=== PATIENT | male | born 1945 | race Caucasian/White ===

== ENCOUNTER 2017-04-22 05:32 | Inpatient (IN) | payer MEDICARE, BC ==
[~2017-04-22] VITALS: Ht 180.3 cm; Wt 98.3 kg
[~2017-04-22 05:32] MED LIST: ALEN70TA48 PO; ARIP2TAB5 PO; COU5T PO; FENT-93 TD; FURO40TA4 PO; MIRT30TA3 PO; NORCO10T PO; RES15C PO; WEL100T PO; ZOF4T PO; [UNRECOGNIZED DRUG - CODE] TP
[2017-04-22] MEDS ORDERED: normal saline 1000ML IV soln IV ONE (05:45)
[2017-04-22] MEDS ORDERED: piperacillin/tazo 3.375gm/50ml 50 ML IV ONE (05:45)
[2017-04-22] MEDS ORDERED: normal saline 1000ml 1,000 ML IV ONE (06:05)
[2017-04-22] MEDS ORDERED: normal saline 1000ML IV soln IVB ONE (06:05)
[2017-04-22 06:38] LABS: BASOPHILS % (AUTO) 0.1 % (0-1); EOSINOPHILS % (AUTO) 0 % (0-6); LYMPHOCYTES # (AUTO) 0.4 X10'3 (1.1-4.8); LYMPHOCYTES % (AUTO) 1.5 % (21-51); MEAN CORPUSCULAR HGB CONC 34.4 % (33.0-36.5); MEAN CORPUSCULAR VOLUME 90.2 FL (78-98); MEAN PLATELET VOLUME 8.6 FL (7.4-10.4); MONOCYTES # (AUTO) 0.4 X10'3 (0-0.9); MONOCYTES % (AUTO) 1.6 % (2-12); NEUTROPHILS # (AUTO) 23.5 X10'3 (1.8-7.7); NEUTROPHILS % (AUTO) 96.8 % (42-75); PLATELET COUNT 121 X10'3 (140-440); RED BLOOD COUNT 3.54 X10'6 (4.70-6.10); RED CELL DISTRIBUTION WIDTH 14.4 % (11.5-14.5); WHITE BLOOD COUNT 24.3 X10'3 (4.5-11.0)
[2017-04-22 06:50] LABS: INR 1.2 INR; PARTIAL THROMBOPLASTIN TIME 29 SECONDS (22-32); PROTHROMBIN TIME 12.4 SECONDS (9.0-12.0)
[2017-04-22 06:54] LABS: ALANINE AMINOTRANSFERASE 17 U/L (12-78); ALBUMIN 1.9 G/DL (3.4-5.0); ALBUMIN/GLOBULIN RATIO 0.6 (1.1-1.5); ALKALINE PHOSPHATASE 53 IU/L (46-116); ANION GAP 9 (8-16); ASPARTATE AMINO TRANSFERASE 28 U/L (10-37); BILIRUBIN,TOTAL 0.5 MG/DL (0.1-1.0); BLOOD UREA NITROGEN 27 MG/DL (7-18); BUN/CREATININE RATIO 14.3 (5.4-32.0); CHLORIDE 109 MMOL/L (99-107); CREATININE 1.89 MG/DL (0.60-1.10); GLUCOSE 92 MG/DL (70-104); MAGNESIUM 1.5 MG/DL (1.5-2.4); POTASSIUM 3.5 MMOL/L (3.5-5.1); SODIUM 145 MMOL/L (135-145); TOTAL CARBON DIOXIDE 27.1 MMOL/L (24-32); TOTAL PROTEIN 5.3 G/DL (6.4-8.2); eGFR 35 ML/MIN
[2017-04-22] MEDS ORDERED: cefTRIAXone 1g/NS 100ml IVPB 100 ML IV ONE (06:55)
[2017-04-22 07:11] LABS: BANDS% (MANUAL) 21 % (0-10); LYMPHOCYTES % (MANUAL) 2 % (21-51); METAMYLEOCYTES% (MANUAL) 2 % (0-0); MONOCYTES % (MANUAL) 1 % (2-12); NEUTROPHILS % (MANUAL) 74 % (42-75); PLATELET ESTIMATE DECREASED; TOTAL CELLS COUNTED 100
[2017-04-22] MEDS ORDERED: NORepinephrine 1 mg/ml inj IV ONE (10:00)
[2017-04-22] MEDS ORDERED: NORepinephrine 8mg/ 250ml NS 250 ML IV ONE (11:20)
[2017-04-22] MEDS ORDERED: bisacodyl 10mg suppository rectal RC PRN (14:05)
[2017-04-22] MEDS ORDERED: magnesium hydroxide 30ml (MOM) UD suspension PO PRN (14:05)
[2017-04-22] MEDS ORDERED: magnesium 4gm in 100ml NS 100 ML IV PRN (14:05)
[2017-04-22] MEDS ORDERED: magnesium 2GM in 50ml NS 50 ML IV PRN (14:05)
[2017-04-22] MEDS ORDERED: acetaminophen 325mg tablet PO PRN (14:05)
[2017-04-22] MEDS ORDERED: sodium phosphate inj. 30 MMOL in dextrose 5%-water 250 ML IV PRN (14:05)
[2017-04-22] MEDS ORDERED: magnesium Cl slow-release 64mg tablet PO PRN (14:05)
[2017-04-22 14:10] LABS: CLARITY,URINE CLOUDY (Clear); COLOR,URINE YELLOW (Yellow); GLUCOSE, URINE NEGATIVE (Neg); KETONES,URINE NEGATIVE (Neg); LEUKOCYTE ESTERASE ,URINE LARGE (Neg); NITRITES, URINE NEGATIVE (Neg); OCCULT BLOOD,URINE LARGE (Neg); PROTEIN,URINE 30 mg/dl (Neg); UA COLLECTION TYPE FOLEY CATH; UROBILINOGEN,URINE 0.2 E.U/dL (0.2-1.0)
[2017-04-22 14:32] LABS: WBC,URINE TNTC /HPF (0-4)
[2017-04-22 14:33] LABS: SQUAMOUS EPITHELIAL CELL,UR MODERATE /LPF (FEW)
[2017-04-22 14:34] LABS: BACTERIA,URINE 2+ /HPF (Neg); RBC,URINE 50-100 /HPF (0-2)
[2017-04-22] MEDS: K, MAG and/or Phos replacement - Verify level? MC SCH (15:01)
[2017-04-22] MEDS: normal saline 1000ml 1,000 ML IV SCH (15:02)
[2017-04-22] MEDS: pantoprazole 40 MG vial IV SCH (15:03)
[2017-04-22] MEDS: morphine 2 MG/ML inj. syringe IV PRN ×2 (16:37→20:27)
[2017-04-22] MEDS: acetaminophen 325mg tablet PO PRN ×2 (16:37→21:40)
[2017-04-22] MEDS: piperacillin/tazo 3.375gm/50ml 50 ML IV SCH (16:38)
[2017-04-22] MEDS: vancomycin/NS 1 GM ADD-VANTAGE 250 ML IV SCH (20:32)
[2017-04-22] MEDS: heparin, porcine 5000 units/ml vial SQ SCH (20:38)
[2017-04-23] VITALS (12 sets, daily range): BP systolic 81–106; BP diastolic 43–71
[2017-04-23] MEDS: normal saline 1000ml 1,000 ML IV SCH ×2 (03:47→09:05)
[2017-04-23] MEDS: morphine 2 MG/ML inj. syringe IV PRN (04:18)
[2017-04-23] MEDS: ondansetron/PF 4mg/2ml inj IV PRN ×2 (04:20→12:26)
[2017-04-23] MEDS: K, MAG and/or Phos replacement - Verify level? MC SCH (08:00)
[2017-04-23] MEDS ORDERED: ARIP5TAB4 PO (08:37)
[2017-04-23] MEDS ORDERED: VITC500T PO (08:38)
[2017-04-23] MEDS ORDERED: BUPR150T8 PO ×2 (08:39→08:40)
[2017-04-23] MEDS ORDERED: FERR325T28 PO (08:41)
[2017-04-23] MEDS ORDERED: DOCU100C23 PO (08:41)
[2017-04-23] MEDS ORDERED: FURO-150 PO (08:43)
[2017-04-23] MEDS ORDERED: OXYC10TA57 PO (08:44)
[2017-04-23] MEDS ORDERED: PER10325T PO (08:45)
[2017-04-23] MEDS ORDERED: ONDA4TAB6 PO (08:45)
[2017-04-23] MEDS ORDERED: POLY17PO10 PO (08:46)
[2017-04-23] MEDS ORDERED: MIRT30TA8 PO (08:46)
[2017-04-23] MEDS ORDERED: POTA10TA19 PO (08:47)
[2017-04-23] MEDS ORDERED: CHOL200016 PO (08:48)
[2017-04-23] MEDS ORDERED: SENN-161 PO (08:50)
[2017-04-23 08:54] LABS: BASOPHILS % (AUTO) 0 % (0-1); EOSINOPHILS # (AUTO) 0.2 X10'3 (0-0.9); EOSINOPHILS % (AUTO) 0.8 % (0-6); HEMATOCRIT 32.9 % (42.0-52.0); LYMPHOCYTES # (AUTO) 0.2 X10'3 (1.1-4.8); LYMPHOCYTES % (AUTO) 0.9 % (21-51); MEAN CORPUSCULAR HEMOGLOBIN 30.3 PG (27.0-31.0); MEAN CORPUSCULAR HGB CONC 33.4 % (33.0-36.5); MEAN CORPUSCULAR VOLUME 90.7 FL (78-98); MEAN PLATELET VOLUME 9.3 FL (7.4-10.4); MONOCYTES # (AUTO) 0.2 X10'3 (0-0.9); NEUTROPHILS # (AUTO) 19.7 X10'3 (1.8-7.7); NEUTROPHILS % (AUTO) 97.3 % (42-75); PLATELET COUNT 87 X10'3 (140-440); RED BLOOD COUNT 3.63 X10'6 (4.70-6.10); RED CELL DISTRIBUTION WIDTH 15.1 % (11.5-14.5); WHITE BLOOD COUNT 20.3 X10'3 (4.5-11.0)
[2017-04-23] MEDS: pantoprazole 40 MG vial IV SCH (09:04)
[2017-04-23] MEDS: vancomycin/NS 1 GM ADD-VANTAGE 250 ML IV SCH (09:04)
[2017-04-23] MEDS: piperacillin/tazo 3.375gm/50ml 50 ML IV SCH ×3 (09:05→16:28)
[2017-04-23] MEDS: heparin, porcine 5000 units/ml vial SQ SCH ×2 (09:05→20:26)
[2017-04-23 09:08] LABS: ALANINE AMINOTRANSFERASE 21 U/L (12-78); ALBUMIN 1.6 G/DL (3.4-5.0); ALBUMIN/GLOBULIN RATIO 0.4 (1.1-1.5); ALKALINE PHOSPHATASE 49 IU/L (46-116); ANION GAP 13 (8-16); ASPARTATE AMINO TRANSFERASE 62 U/L (10-37); BILIRUBIN,TOTAL 0.5 MG/DL (0.1-1.0); BLOOD UREA NITROGEN 35 MG/DL (7-18); BUN/CREATININE RATIO 15.4 (5.4-32.0); CALCIUM 6.5 MG/DL (8.5-10.1); CHLORIDE 111 MMOL/L (99-107); CREATININE 2.27 MG/DL (0.60-1.10); GLUCOSE 71 MG/DL (70-104); MAGNESIUM 1.5 MG/DL (1.5-2.4); PHOSPHORUS 4.1 MG/DL (2.3-4.5); POTASSIUM 3.6 MMOL/L (3.5-5.1); SODIUM 148 MMOL/L (135-145); TOTAL PROTEIN 5.3 G/DL (6.4-8.2); eGFR 29 ML/MIN
[2017-04-23 09:52] LABS: TOTAL CELLS COUNTED 100
[2017-04-23 09:53] LABS: BURR CELLS 1+; PLATELET ESTIMATE DECREASED
[2017-04-23] MEDS: morphine 4 MG/ML inj SYRINge IV PRN ×3 (12:26→21:58)
[2017-04-23] MEDS: NORepinephrine 8mg/ 250ml NS 250 ML IV SCH (12:43)
[2017-04-23 18:11] LABS: OXYGEN SATURATION (MIXED VEN) 67.6 % (60-80); PO2 MIXED VENOUS (TEMP COR) 33.8 mmHg (35-46)
[2017-04-23] MEDS: lactobacillus rhamnosus 10,000 MMU CELLS/CAPSULE PO SCH (19:44)
[2017-04-23] MEDS: acetaminophen 325mg tablet PO PRN (19:44)
[2017-04-23] MEDS: aripiprazole 5mg tablet PO SCH (23:27)
[2017-04-24] VITALS (25 sets, daily range): BP systolic 71–125; BP diastolic 50–77
[2017-04-24] MEDS ORDERED: normal saline 500ml IV soln 500 ML IV ONE ×2 (00:35→03:35)
[2017-04-24] MEDS ORDERED: albumin (human) 25% 100 ML IV solution IV ONE (00:35)
[2017-04-24] MEDS: piperacillin/tazo 3.375gm/50ml 50 ML IV SCH ×3 (00:40→15:06)
[2017-04-24] MEDS: NORepinephrine 8mg/ 250ml NS 250 ML IV SCH ×3 (00:42→21:02)
[2017-04-24] MEDS: morphine 4 MG/ML inj SYRINge IV PRN ×4 (02:01→18:36)
[2017-04-24] MEDS ORDERED: diltiazem 5mg/ml 5ml inj. IV ONE (02:40)
[2017-04-24] MEDS ORDERED: amiodarone 150mg/dext, iso-os 100 ML IV ONE ×2 (03:00→03:01)
[2017-04-24] MEDS: amiodarone/D5 360MG/200ML BAG 200 ML IV SCH ×2 (03:14→08:53)
[2017-04-24 05:37] LABS: MEAN CORPUSCULAR HEMOGLOBIN 30.3 PG (27.0-31.0); MEAN CORPUSCULAR HGB CONC 33.3 % (33.0-36.5); MEAN CORPUSCULAR VOLUME 91.1 FL (78-98); MEAN PLATELET VOLUME 9.6 FL (7.4-10.4); PLATELET COUNT 58 X10'3 (140-440); RED BLOOD COUNT 3.63 X10'6 (4.70-6.10); RED CELL DISTRIBUTION WIDTH 15.2 % (11.5-14.5); WHITE BLOOD COUNT 13.1 X10'3 (4.5-11.0)
[2017-04-24] MEDS: normal saline 1000ml 1,000 ML IV SCH ×2 (05:57→21:00)
[2017-04-24 06:04] LABS: ALANINE AMINOTRANSFERASE 27 U/L (12-78); ALBUMIN 1.8 G/DL (3.4-5.0); ALBUMIN/GLOBULIN RATIO 0.5 (1.1-1.5); ALKALINE PHOSPHATASE 55 IU/L (46-116); ANION GAP 13 (8-16); ASPARTATE AMINO TRANSFERASE 51 U/L (10-37); BILIRUBIN,TOTAL 0.8 MG/DL (0.1-1.0); BLOOD UREA NITROGEN 34 MG/DL (7-18); CALCIUM 6.1 MG/DL (8.5-10.1); CHLORIDE 112 MMOL/L (99-107); CREATININE 2.26 MG/DL (0.60-1.10); GLUCOSE 114 MG/DL (70-104); MAGNESIUM 1.6 MG/DL (1.5-2.4); PHOSPHORUS 3.1 MG/DL (2.3-4.5); SODIUM 147 MMOL/L (135-145); TOTAL CARBON DIOXIDE 22.5 MMOL/L (24-32); TOTAL PROTEIN 5.2 G/DL (6.4-8.2); eGFR 29 ML/MIN
[2017-04-24 06:24] LABS: TOTAL CELLS COUNTED 100
[2017-04-24 06:25] LABS: ANISOCYTOSIS 1+; BURR CELLS 1+; PLATELET ESTIMATE DECREASED
[2017-04-24] MEDS ORDERED: aripiprazole 5mg tablet PO SCH (08:00)
[2017-04-24] MEDS: K, MAG and/or Phos replacement - Verify level? MC SCH (08:00)
[2017-04-24] MEDS: pantoprazole 40 MG vial IV SCH (08:46)
[2017-04-24] MEDS: ascorbic acid 500mg tablet PO SCH ×2 (08:46→21:12)
[2017-04-24] MEDS: buPROPion SR 150mg tablet PO SCH (08:46)
[2017-04-24] MEDS: vitamin D (cholecalciferol) 1,000 unit tablet PO SCH (08:46)
[2017-04-24] MEDS: aripiprazole 5mg tablet PO SCH (08:46)
[2017-04-24] MEDS: ferrous sulfate 325mg tablet PO SCH (08:46)
[2017-04-24] MEDS: lactobacillus rhamnosus 10,000 MMU CELLS/CAPSULE PO SCH ×2 (08:53→21:12)
[2017-04-24] MEDS: potassium Cl 20 mEq SR tablet PO PRN ×2 (08:59→15:05)
[2017-04-24] MEDS: heparin, porcine 5000 units/ml vial SQ SCH ×2 (08:59→20:00)
[2017-04-24] MEDS: acetaminophen 325mg tablet PO PRN (16:34)
[2017-04-24] MEDS: amiodarone/D5 450MG/250ML BAG 250 ML IV SCH (21:00)
[2017-04-24] MEDS ORDERED: furosemide 40mg/4ml inj IV ONE (21:45)
[2017-04-25] VITALS (23 sets, daily range): BP systolic 80–119; BP diastolic 46–83
[2017-04-25] MEDS: piperacillin/tazo 3.375gm/50ml 50 ML IV SCH ×3 (03:01→16:00)
[2017-04-25 04:11] LABS: HEMATOCRIT 33.1 % (42.0-52.0); HEMOGLOBIN 11.1 g/dl (14.0-17.9); MEAN CORPUSCULAR HEMOGLOBIN 30.6 PG (27.0-31.0); MEAN CORPUSCULAR HGB CONC 33.7 % (33.0-36.5); MEAN CORPUSCULAR VOLUME 90.9 FL (78-98); MEAN PLATELET VOLUME 9.6 FL (7.4-10.4); RED BLOOD COUNT 3.64 X10'6 (4.70-6.10); RED CELL DISTRIBUTION WIDTH 15.6 % (11.5-14.5); WHITE BLOOD COUNT 15.4 X10'3 (4.5-11.0)
[2017-04-25 04:28] LABS: ALANINE AMINOTRANSFERASE 28 U/L (12-78); ALBUMIN 1.5 G/DL (3.4-5.0); ALBUMIN/GLOBULIN RATIO 0.4 (1.1-1.5); ALKALINE PHOSPHATASE 77 IU/L (46-116); ANION GAP 12 (8-16); ASPARTATE AMINO TRANSFERASE 44 U/L (10-37); BILIRUBIN,TOTAL 0.8 MG/DL (0.1-1.0); BLOOD UREA NITROGEN 32 MG/DL (7-18); BUN/CREATININE RATIO 15.5 (5.4-32.0); CALCIUM 6.1 MG/DL (8.5-10.1); CHLORIDE 112 MMOL/L (99-107); CREATININE 2.06 MG/DL (0.60-1.10); GLUCOSE 133 MG/DL (70-104); MAGNESIUM 1.6 MG/DL (1.5-2.4); PHOSPHORUS 2.2 MG/DL (2.3-4.5); SODIUM 146 MMOL/L (135-145); TOTAL CARBON DIOXIDE 21.7 MMOL/L (24-32); eGFR 32 ML/MIN
[2017-04-25 04:35] LABS: PLATELET COUNT 29 X10'3 (140-440)
[2017-04-25 04:37] LABS: POTASSIUM 2.8 MMOL/L (3.5-5.1)
[2017-04-25] MEDS ORDERED: potassium Cl 40MEQ/250ML bag 250 ML IV ONE (04:46)
[2017-04-25] MEDS ORDERED: potassium Cl 40MEQ/250ML bag 250 ML IV PRN ×2 (05:05)
[2017-04-25 05:09] LABS: ANISOCYTOSIS 1+; BURR CELLS 1+; PLATELET ESTIMATE DECREASED; TOTAL CELLS COUNTED 100; TOXIC VACUOLATION FEW
[2017-04-25] MEDS: morphine 4 MG/ML inj SYRINge IV PRN ×4 (05:28→21:46)
[2017-04-25] MEDS: pantoprazole 40mg Tablet.DR PO SCH (07:30)
[2017-04-25] MEDS: K, MAG and/or Phos replacement - Verify level? MC SCH (08:00)
[2017-04-25] MEDS: vitamin D (cholecalciferol) 1,000 unit tablet PO SCH (08:00)
[2017-04-25] MEDS: normal saline 1000ml 1,000 ML IV SCH ×2 (08:45→20:30)
[2017-04-25] MEDS: buPROPion SR 150mg tablet PO SCH (09:03)
[2017-04-25] MEDS: ascorbic acid 500mg tablet PO SCH ×2 (09:03→20:30)
[2017-04-25] MEDS: lactobacillus rhamnosus 10,000 MMU CELLS/CAPSULE PO SCH ×2 (09:03→20:30)
[2017-04-25] MEDS: aripiprazole 5mg tablet PO SCH (09:03)
[2017-04-25] MEDS: ferrous sulfate 325mg tablet PO SCH (09:03)
[2017-04-25] MEDS: amiodarone/D5 450MG/250ML BAG 250 ML IV SCH (12:39)
[2017-04-25] MEDS: sodium phosphate inj. 15 MMOL in dextrose 5%-water 150 ML IV PRN (12:47)
[2017-04-25] MEDS: NORepinephrine 8mg/ 250ml NS 250 ML IV SCH (15:37)
[2017-04-25] MEDS: methylPREDNISolone sod succ 125mg/2ml vial IV SCH (20:30)
[2017-04-26] VITALS (24 sets, daily range): BP systolic 74–123; BP diastolic 53–88
[2017-04-26] MEDS: NORepinephrine 8mg/ 250ml NS 250 ML IV SCH (01:18)
[2017-04-26] MEDS: morphine 4 MG/ML inj SYRINge IV PRN ×3 (01:49→21:59)
[2017-04-26] MEDS: methylPREDNISolone sod succ 125mg/2ml vial IV SCH ×4 (01:49→21:58)
[2017-04-26 05:25] LABS: BASOPHILS % (AUTO) 0.2 % (0-1); EOSINOPHILS # (AUTO) 0.3 X10'3 (0-0.9); EOSINOPHILS % (AUTO) 2.1 % (0-6); HEMATOCRIT 36.1 % (42.0-52.0); LYMPHOCYTES # (AUTO) 0.4 X10'3 (1.1-4.8); LYMPHOCYTES % (AUTO) 2.9 % (21-51); MEAN CORPUSCULAR HEMOGLOBIN 30.1 PG (27.0-31.0); MEAN CORPUSCULAR HGB CONC 33.3 % (33.0-36.5); MEAN CORPUSCULAR VOLUME 90.2 FL (78-98); MONOCYTES # (AUTO) 0.1 X10'3 (0-0.9); MONOCYTES % (AUTO) 0.9 % (2-12); NEUTROPHILS % (AUTO) 93.9 % (42-75); RED CELL DISTRIBUTION WIDTH 15.8 % (11.5-14.5); WHITE BLOOD COUNT 13.8 X10'3 (4.5-11.0)
[2017-04-26 05:32] LABS: PLATELET COUNT 18 X10'3 (140-440)
[2017-04-26 05:58] LABS: ALANINE AMINOTRANSFERASE 21 U/L (12-78); ALBUMIN 1.3 G/DL (3.4-5.0); ALBUMIN/GLOBULIN RATIO 0.4 (1.1-1.5); ALKALINE PHOSPHATASE 86 IU/L (46-116); ANION GAP 14 (8-16); ASPARTATE AMINO TRANSFERASE 38 U/L (10-37); BILIRUBIN,TOTAL 0.9 MG/DL (0.1-1.0); BLOOD UREA NITROGEN 36 MG/DL (7-18); BUN/CREATININE RATIO 15.9 (5.4-32.0); CALCIUM 6.6 MG/DL (8.5-10.1); CHLORIDE 114 MMOL/L (99-107); CREATININE 2.26 MG/DL (0.60-1.10); GLUCOSE 152 MG/DL (70-104); MAGNESIUM 1.5 MG/DL (1.5-2.4); PHOSPHORUS 2.6 MG/DL (2.3-4.5); POTASSIUM 3.4 MMOL/L (3.5-5.1); SODIUM 149 MMOL/L (135-145); TOTAL CARBON DIOXIDE 21.5 MMOL/L (24-32); TOTAL PROTEIN 4.8 G/DL (6.4-8.2); eGFR 29 ML/MIN
[2017-04-26 06:15] LABS: TOTAL CELLS COUNTED 100
[2017-04-26 06:16] LABS: ANISOCYTOSIS 1+; BURR CELLS 1+; PLATELET ESTIMATE DECREASED; TARGET CELLS FEW
[2017-04-26] MEDS: pantoprazole 40mg Tablet.DR PO SCH (07:30)
[2017-04-26] MEDS ORDERED: levoFLOXACIN-Levaquin 500mg/D5 100 ML IV SCH (08:00)
[2017-04-26] MEDS: K, MAG and/or Phos replacement - Verify level? MC SCH (08:00)
[2017-04-26] MEDS: aripiprazole 5mg tablet PO SCH (09:03)
[2017-04-26] MEDS: buPROPion SR 150mg tablet PO SCH (09:03)
[2017-04-26] MEDS: ferrous sulfate 325mg tablet PO SCH (09:03)
[2017-04-26] MEDS: ascorbic acid 500mg tablet PO SCH ×2 (09:03→21:59)
[2017-04-26] MEDS: lactobacillus rhamnosus 10,000 MMU CELLS/CAPSULE PO SCH ×2 (09:04→21:59)
[2017-04-26] MEDS: vitamin D (cholecalciferol) 1,000 unit tablet PO SCH (09:04)
[2017-04-26] MEDS: normal saline 1000ml 1,000 ML IV SCH (11:25)
[2017-04-26] MEDS: LACTOSE-FREE FOOD (BOOST BREEZE) 237ML PO SCH ×2 (13:00→22:02)
[2017-04-26 20:42] LABS: ALANINE AMINOTRANSFERASE 24 U/L (12-78); ALBUMIN 1.3 G/DL (3.4-5.0); ALBUMIN/GLOBULIN RATIO 0.4 (1.1-1.5); ALKALINE PHOSPHATASE 78 IU/L (46-116); ANION GAP 12 (8-16); ASPARTATE AMINO TRANSFERASE 44 U/L (10-37); BILIRUBIN,TOTAL 0.6 MG/DL (0.1-1.0); BLOOD UREA NITROGEN 41 MG/DL (7-18); BUN/CREATININE RATIO 19.2 (5.4-32.0); CALCIUM 6.7 MG/DL (8.5-10.1); CHLORIDE 115 MMOL/L (99-107); CREATININE 2.13 MG/DL (0.60-1.10); GLUCOSE 187 MG/DL (70-104); MAGNESIUM 1.6 MG/DL (1.5-2.4); PHOSPHORUS 2.1 MG/DL (2.3-4.5); POTASSIUM 3.3 MMOL/L (3.5-5.1); SODIUM 148 MMOL/L (135-145); TOTAL CARBON DIOXIDE 21.4 MMOL/L (24-32); TOTAL PROTEIN 4.8 G/DL (6.4-8.2); eGFR 31 ML/MIN
[2017-04-26] MEDS ORDERED: calcium chloride 100 MG/1 ML inj IV ONE ×2 (21:20→22:55)
[2017-04-26] MEDS ORDERED: magnesium Cl slow-release 64mg tablet PO ONE (21:20)
[2017-04-26] MEDS ORDERED: sodium bicarbonate (8.4%) 1 mEq/ml syringe IV ONE ×2 (21:20→22:55)
[2017-04-26] MEDS: diphenhydrAMINE 50 mg/ml inj IV PRN (21:58)
[2017-04-26] MEDS ORDERED: potassium Cl 40MEQ/250ML bag 250 ML IV ONE (22:47)
[2017-04-27] VITALS (23 sets, daily range): BP systolic 98–127; BP diastolic 58–89
[2017-04-27] MEDS: normal saline 1000ml 1,000 ML IV SCH (00:45)
[2017-04-27 01:15] LABS: ALANINE AMINOTRANSFERASE 26 U/L (12-78); ALBUMIN 1.4 G/DL (3.4-5.0); ALBUMIN/GLOBULIN RATIO 0.4 (1.1-1.5); ALKALINE PHOSPHATASE 81 IU/L (46-116); ANION GAP 12 (8-16); ASPARTATE AMINO TRANSFERASE 46 U/L (10-37); BILIRUBIN,TOTAL 0.7 MG/DL (0.1-1.0); BLOOD UREA NITROGEN 42 MG/DL (7-18); BUN/CREATININE RATIO 20.3 (5.4-32.0); CHLORIDE 115 MMOL/L (99-107); CREATININE 2.07 MG/DL (0.60-1.10); GLUCOSE 174 MG/DL (70-104); MAGNESIUM 1.6 MG/DL (1.5-2.4); PHOSPHORUS 1.9 MG/DL (2.3-4.5); POTASSIUM 3.7 MMOL/L (3.5-5.1); SODIUM 149 MMOL/L (135-145); TOTAL CARBON DIOXIDE 22.3 MMOL/L (24-32); TOTAL PROTEIN 4.9 G/DL (6.4-8.2); eGFR 32 ML/MIN
[2017-04-27 01:17] LABS: BASOPHILS % (AUTO) 0.1 % (0-1); EOSINOPHILS # (AUTO) 0.3 X10'3 (0-0.9); EOSINOPHILS % (AUTO) 1.6 % (0-6); HEMOGLOBIN 12.3 g/dl (14.0-17.9); LYMPHOCYTES # (AUTO) 0.6 X10'3 (1.1-4.8); LYMPHOCYTES % (AUTO) 3.3 % (21-51); MEAN CORPUSCULAR HEMOGLOBIN 31.2 PG (27.0-31.0); MEAN CORPUSCULAR HGB CONC 35.1 % (33.0-36.5); MEAN CORPUSCULAR VOLUME 88.9 FL (78-98); MEAN PLATELET VOLUME 6.5 FL (7.4-10.4); MONOCYTES # (AUTO) 0.2 X10'3 (0-0.9); MONOCYTES % (AUTO) 0.9 % (2-12); NEUTROPHILS # (AUTO) 17.6 X10'3 (1.8-7.7); NEUTROPHILS % (AUTO) 94.1 % (42-75); RED BLOOD COUNT 3.94 X10'6 (4.70-6.10); RED CELL DISTRIBUTION WIDTH 14.8 % (11.5-14.5); WHITE BLOOD COUNT 18.7 X10'3 (4.5-11.0)
[2017-04-27] MEDS: methylPREDNISolone sod succ 125mg/2ml vial IV SCH ×3 (02:16→14:23)
[2017-04-27 02:22] LABS: PLATELET COUNT 6 X10'3 (140-440)
[2017-04-27] MEDS: lactobacillus rhamnosus 10,000 MMU CELLS/CAPSULE PO SCH ×2 (07:59→20:26)
[2017-04-27] MEDS: diphenhydrAMINE 50 mg/ml inj IV PRN (07:59)
[2017-04-27] MEDS: vitamin D (cholecalciferol) 1,000 unit tablet PO SCH (07:59)
[2017-04-27] MEDS: ferrous sulfate 325mg tablet PO SCH (07:59)
[2017-04-27] MEDS: ascorbic acid 500mg tablet PO SCH ×2 (07:59→20:26)
[2017-04-27] MEDS: LACTOSE-FREE FOOD (BOOST BREEZE) 237ML PO SCH ×3 (08:00→18:00)
[2017-04-27] MEDS: aripiprazole 5mg tablet PO SCH (08:00)
[2017-04-27] MEDS: K, MAG and/or Phos replacement - Verify level? MC SCH (08:00)
[2017-04-27] MEDS: buPROPion SR 150mg tablet PO SCH (08:00)
[2017-04-27] MEDS: NORepinephrine 8mg/ 250ml NS 250 ML IV SCH (09:04)
[2017-04-27] MEDS: sodium phosphate inj. 15 MMOL in dextrose 5%-water 150 ML IV PRN (09:37)
[2017-04-27] MEDS ORDERED: CefTRIAXone 2gm/D5W 50ml ADVTG 100 ML IV SCH (09:55)
[2017-04-27] MEDS: oxyCODONE/APAP 10/325mg tablet PO PRN (14:26)
[2017-04-27] MEDS: oxyCODONE SR 40mg (sust release) tab PO SCH (20:26)
[2017-04-27 20:45] LABS: BASOPHILS % (AUTO) 0 % (0-1); EOSINOPHILS # (AUTO) 0.2 X10'3 (0-0.9); EOSINOPHILS % (AUTO) 1.3 % (0-6); HEMATOCRIT 33.4 % (42.0-52.0); LYMPHOCYTES # (AUTO) 0.8 X10'3 (1.1-4.8); LYMPHOCYTES % (AUTO) 4.6 % (21-51); MEAN CORPUSCULAR HEMOGLOBIN 29.9 PG (27.0-31.0); MEAN CORPUSCULAR HGB CONC 32.9 % (33.0-36.5); MEAN CORPUSCULAR VOLUME 90.8 FL (78-98); MEAN PLATELET VOLUME 8.6 FL (7.4-10.4); MONOCYTES # (AUTO) 0.4 X10'3 (0-0.9); NEUTROPHILS # (AUTO) 15.9 X10'3 (1.8-7.7); NEUTROPHILS % (AUTO) 92.1 % (42-75); PLATELET COUNT 63 X10'3 (140-440); RED BLOOD COUNT 3.68 X10'6 (4.70-6.10); RED CELL DISTRIBUTION WIDTH 15.9 % (11.5-14.5); WHITE BLOOD COUNT 17.3 X10'3 (4.5-11.0)
[2017-04-27 22:14] LABS: ANISOCYTOSIS 1+; PLATELET ESTIMATE DECREASED; TARGET CELLS FEW; TOTAL CELLS COUNTED 100
[2017-04-28] VITALS (13 sets, daily range): BP systolic 93–114; BP diastolic 59–76
[2017-04-28 05:28] LABS: BASOPHILS % (AUTO) 0 % (0-1); EOSINOPHILS # (AUTO) 0.3 X10'3 (0-0.9); EOSINOPHILS % (AUTO) 1.6 % (0-6); HEMATOCRIT 31.5 % (42.0-52.0); HEMOGLOBIN 10.6 g/dl (14.0-17.9); LYMPHOCYTES # (AUTO) 0.7 X10'3 (1.1-4.8); LYMPHOCYTES % (AUTO) 4.5 % (21-51); MEAN CORPUSCULAR HEMOGLOBIN 30.2 PG (27.0-31.0); MEAN CORPUSCULAR HGB CONC 33.6 % (33.0-36.5); MEAN PLATELET VOLUME 9.2 FL (7.4-10.4); MONOCYTES # (AUTO) 0.4 X10'3 (0-0.9); MONOCYTES % (AUTO) 2.6 % (2-12); NEUTROPHILS # (AUTO) 15.3 X10'3 (1.8-7.7); NEUTROPHILS % (AUTO) 91.3 % (42-75); RED CELL DISTRIBUTION WIDTH 16.3 % (11.5-14.5); WHITE BLOOD COUNT 16.8 X10'3 (4.5-11.0)
[2017-04-28 05:34] LABS: PLATELET COUNT 38 X10'3 (140-440)
[2017-04-28 06:10] LABS: ALANINE AMINOTRANSFERASE 28 U/L (12-78); ALBUMIN 1.6 G/DL (3.4-5.0); ALBUMIN/GLOBULIN RATIO 0.5 (1.1-1.5); ALKALINE PHOSPHATASE 68 IU/L (46-116); ANION GAP 12 (8-16); ASPARTATE AMINO TRANSFERASE 29 U/L (10-37); BILIRUBIN,TOTAL 0.6 MG/DL (0.1-1.0); BLOOD UREA NITROGEN 51 MG/DL (7-18); BUN/CREATININE RATIO 26.3 (5.4-32.0); CALCIUM 7.6 MG/DL (8.5-10.1); CHLORIDE 115 MMOL/L (99-107); CREATININE 1.94 MG/DL (0.60-1.10); GLUCOSE 126 MG/DL (70-104); MAGNESIUM 1.9 MG/DL (1.5-2.4); PHOSPHORUS 2.6 MG/DL (2.3-4.5); POTASSIUM 3.6 MMOL/L (3.5-5.1); SODIUM 148 MMOL/L (135-145); TOTAL CARBON DIOXIDE 20.9 MMOL/L (24-32); eGFR 34 ML/MIN
[2017-04-28] MEDS: K, MAG and/or Phos replacement - Verify level? MC SCH (07:11)
[2017-04-28] MEDS: ascorbic acid 500mg tablet PO SCH ×2 (08:09→21:39)
[2017-04-28] MEDS: buPROPion SR 150mg tablet PO SCH (08:09)
[2017-04-28] MEDS: oxyCODONE SR 40mg (sust release) tab PO SCH ×2 (08:09→21:39)
[2017-04-28] MEDS: lactobacillus rhamnosus 10,000 MMU CELLS/CAPSULE PO SCH ×2 (08:09→21:39)
[2017-04-28] MEDS: vitamin D (cholecalciferol) 1,000 unit tablet PO SCH (08:09)
[2017-04-28] MEDS: aripiprazole 5mg tablet PO SCH (08:09)
[2017-04-28] MEDS: ferrous sulfate 325mg tablet PO SCH (08:09)
[2017-04-28] MEDS: CefTRIAXone 2gm/NS 100ml IVPB 100 ML IV SCH (08:09)
[2017-04-28] MEDS: LACTOSE-FREE FOOD (BOOST BREEZE) 237ML PO SCH ×3 (08:14→21:44)
[2017-04-28] MEDS: furosemide 40mg/4ml inj IV SCH ×2 (13:06→16:00)
[2017-04-28] MEDS ORDERED: furosemide 40mg/4ml inj IV SCH ×2 (16:00)
[2017-04-28] MEDS: amiodarone 200mg tablet PO SCH (16:45)
[2017-04-29] MEDS: furosemide 40mg/4ml inj IV SCH ×3 (00:04→16:00)
[2017-04-29 00:05] VITALS: BP 107/56
[2017-04-29 02:30] VITALS: BP 107/59
[2017-04-29] MEDS: amiodarone 200mg tablet PO SCH ×2 (04:09→16:00)
[2017-04-29 05:00] VITALS: BP 118/72
[2017-04-29 06:23] LABS: BASOPHILS % (AUTO) 0.1 % (0-1); EOSINOPHILS # (AUTO) 0.3 X10'3 (0-0.9); EOSINOPHILS % (AUTO) 1.7 % (0-6); HEMATOCRIT 29.8 % (42.0-52.0); HEMOGLOBIN 9.9 g/dl (14.0-17.9); LYMPHOCYTES # (AUTO) 0.9 X10'3 (1.1-4.8); LYMPHOCYTES % (AUTO) 5.2 % (21-51); MEAN CORPUSCULAR HEMOGLOBIN 30.1 PG (27.0-31.0); MEAN CORPUSCULAR HGB CONC 33.2 % (33.0-36.5); MEAN CORPUSCULAR VOLUME 90.7 FL (78-98); MEAN PLATELET VOLUME 10.3 FL (7.4-10.4); MONOCYTES # (AUTO) 0.4 X10'3 (0-0.9); NEUTROPHILS # (AUTO) 16.5 X10'3 (1.8-7.7); RED BLOOD COUNT 3.28 X10'6 (4.70-6.10); RED CELL DISTRIBUTION WIDTH 16.3 % (11.5-14.5); WHITE BLOOD COUNT 18.2 X10'3 (4.5-11.0)
[2017-04-29 06:30] LABS: ALANINE AMINOTRANSFERASE 28 U/L (12-78); ALBUMIN 1.6 G/DL (3.4-5.0); ALBUMIN/GLOBULIN RATIO 0.5 (1.1-1.5); ALKALINE PHOSPHATASE 60 IU/L (46-116); ANION GAP 12 (8-16); ASPARTATE AMINO TRANSFERASE 26 U/L (10-37); BILIRUBIN,TOTAL 0.5 MG/DL (0.1-1.0); BLOOD UREA NITROGEN 56 MG/DL (7-18); BUN/CREATININE RATIO 27.5 (5.4-32.0); CALCIUM 7.5 MG/DL (8.5-10.1); CHLORIDE 115 MMOL/L (99-107); CREATININE 2.04 MG/DL (0.60-1.10); GLUCOSE 111 MG/DL (70-104); PHOSPHORUS 2.8 MG/DL (2.3-4.5); POTASSIUM 3.6 MMOL/L (3.5-5.1); SODIUM 150 MMOL/L (135-145); TOTAL CARBON DIOXIDE 22.8 MMOL/L (24-32); TOTAL PROTEIN 4.8 G/DL (6.4-8.2); eGFR 32 ML/MIN
[2017-04-29 07:15] LABS: PLATELET COUNT 27 X10'3 (140-440)
[2017-04-29] MEDS: vitamin D (cholecalciferol) 1,000 unit tablet PO SCH (07:55)
[2017-04-29] MEDS: aripiprazole 5mg tablet PO SCH (07:55)
[2017-04-29] MEDS: ferrous sulfate 325mg tablet PO SCH (07:55)
[2017-04-29] MEDS: ascorbic acid 500mg tablet PO SCH ×2 (07:56→20:28)
[2017-04-29] MEDS: buPROPion SR 150mg tablet PO SCH (07:56)
[2017-04-29] MEDS: lactobacillus rhamnosus 10,000 MMU CELLS/CAPSULE PO SCH ×2 (07:56→20:27)
[2017-04-29] MEDS: K, MAG and/or Phos replacement - Verify level? MC SCH (08:00)
[2017-04-29] MEDS: LACTOSE-FREE FOOD (BOOST BREEZE) 237ML PO SCH ×3 (08:00→18:00)
[2017-04-29] MEDS: CefTRIAXone 2gm/NS 100ml IVPB 100 ML IV SCH (08:33)
[2017-04-29] MEDS: oxyCODONE SR 40mg (sust release) tab PO SCH ×2 (09:17→20:28)
[2017-04-29 10:00] VITALS: BP 113/65
[2017-04-29 18:00] VITALS: BP 101/52
[2017-04-29 22:00] VITALS: BP 106/65
[2017-04-30] MEDS: furosemide 40mg/4ml inj IV SCH ×3 (01:17→16:02)
[2017-04-30] MEDS: amiodarone 200mg tablet PO SCH ×2 (04:22→16:02)
[2017-04-30 04:37] LABS: HEMATOCRIT 31.3 % (42.0-52.0); HEMOGLOBIN 10.4 g/dl (14.0-17.9); MEAN CORPUSCULAR HGB CONC 33.4 % (33.0-36.5); MEAN CORPUSCULAR VOLUME 89.7 FL (78-98); MEAN PLATELET VOLUME 10.4 FL (7.4-10.4); RED BLOOD COUNT 3.49 X10'6 (4.70-6.10)
[2017-04-30 04:45] LABS: PLATELET COUNT 44 X10'3 (140-440)
[2017-04-30 04:52] LABS: ALANINE AMINOTRANSFERASE 38 U/L (12-78); ALBUMIN 1.7 G/DL (3.4-5.0); ALBUMIN/GLOBULIN RATIO 0.5 (1.1-1.5); ALKALINE PHOSPHATASE 69 IU/L (46-116); ANION GAP 12 (8-16); ASPARTATE AMINO TRANSFERASE 49 U/L (10-37); BILIRUBIN,TOTAL 0.6 MG/DL (0.1-1.0); BLOOD UREA NITROGEN 55 MG/DL (7-18); BUN/CREATININE RATIO 27.5 (5.4-32.0); CALCIUM 7.4 MG/DL (8.5-10.1); CHLORIDE 113 MMOL/L (99-107); GLUCOSE 85 MG/DL (70-104); MAGNESIUM 1.9 MG/DL (1.5-2.4); PHOSPHORUS 2.2 MG/DL (2.3-4.5); POTASSIUM 3.2 MMOL/L (3.5-5.1); SODIUM 150 MMOL/L (135-145); TOTAL CARBON DIOXIDE 25.1 MMOL/L (24-32); TOTAL PROTEIN 5.2 G/DL (6.4-8.2); eGFR 33 ML/MIN
[2017-04-30 04:57] LABS: LYMPHOCYTES % (AUTO) 6.9 % (21-51); MONOCYTES % (AUTO) 2.1 % (2-12); NEUTROPHILS % (AUTO) 85.8 % (42-75)
[2017-04-30 04:58] LABS: BASOPHILS % (AUTO) 0.6 % (0-1); EOSINOPHILS % (AUTO) 4.6 % (0-6)
[2017-04-30 04:59] LABS: WHITE BLOOD COUNT 22.9 X10'3 (4.5-11.0)
[2017-04-30 05:00] VITALS: BP 111/62
[2017-04-30 05:00] LABS: LYMPHOCYTES # (AUTO) 1.6 X10'3 (1.1-4.8); NEUTROPHILS # (AUTO) 19.6 X10'3 (1.8-7.7)
[2017-04-30 05:01] LABS: BASOPHILS # (AUTO) 0.1 X10'3 (0-0.2); EOSINOPHILS # (AUTO) 1.1 X10'3 (0-0.9); MONOCYTES # (AUTO) 0.5 X10'3 (0-0.9)
[2017-04-30 05:16] LABS: ANISOCYTOSIS 1+; LARGE PLATELETS FEW; PLATELET ESTIMATE DECREASED; TARGET CELLS FEW
[2017-04-30] MEDS: oxyCODONE/APAP 10/325mg tablet PO PRN ×3 (06:51→12:43)
[2017-04-30] MEDS: K, MAG and/or Phos replacement - Verify level? MC SCH (08:00)
[2017-04-30] MEDS: CefTRIAXone 2gm/NS 100ml IVPB 100 ML IV SCH (08:44)
[2017-04-30] MEDS: lactobacillus rhamnosus 10,000 MMU CELLS/CAPSULE PO SCH ×2 (08:44→20:54)
[2017-04-30] MEDS: LACTOSE-FREE FOOD (BOOST BREEZE) 237ML PO SCH ×3 (08:44→18:00)
[2017-04-30] MEDS: aripiprazole 5mg tablet PO SCH (08:44)
[2017-04-30] MEDS: Neutra Phos packet PO PRN ×2 (08:45→16:02)
[2017-04-30] MEDS: vitamin D (cholecalciferol) 1,000 unit tablet PO SCH (08:45)
[2017-04-30] MEDS: oxyCODONE SR 40mg (sust release) tab PO SCH ×2 (08:45→20:54)
[2017-04-30] MEDS: ferrous sulfate 325mg tablet PO SCH (08:45)
[2017-04-30] MEDS: buPROPion SR 150mg tablet PO SCH (08:45)
[2017-04-30] MEDS: potassium Cl 20 mEq SR tablet PO PRN ×3 (08:45→16:02)
[2017-04-30] MEDS: ascorbic acid 500mg tablet PO SCH ×2 (08:45→20:54)
[2017-04-30 10:00] VITALS: BP 102/63
[2017-04-30 18:00] VITALS: BP 109/55
[2017-04-30 22:00] VITALS: BP 95/56
[2017-05-01] MEDS: Neutra Phos packet PO PRN (01:45)
[2017-05-01] MEDS: amiodarone 200mg tablet PO SCH ×2 (04:04→17:21)
[2017-05-01 05:00] VITALS: BP 91/53
[2017-05-01] MEDS ORDERED: morphine 2 MG/ML inj. syringe IV ONE (05:50)
[2017-05-01] MEDS ORDERED: morphine 4 MG/ML inj SYRINge IV ONE (05:55)
[2017-05-01 06:32] LABS: BASOPHILS % (AUTO) 0 % (0-1); EOSINOPHILS # (AUTO) 0.8 X10'3 (0-0.9); EOSINOPHILS % (AUTO) 4.3 % (0-6); HEMATOCRIT 27.5 % (42.0-52.0); HEMOGLOBIN 9.2 g/dl (14.0-17.9); LYMPHOCYTES # (AUTO) 1.4 X10'3 (1.1-4.8); LYMPHOCYTES % (AUTO) 7.1 % (21-51); MEAN CORPUSCULAR HEMOGLOBIN 30.2 PG (27.0-31.0); MEAN CORPUSCULAR HGB CONC 33.5 % (33.0-36.5); MEAN CORPUSCULAR VOLUME 90.2 FL (78-98); MEAN PLATELET VOLUME 9.8 FL (7.4-10.4); MONOCYTES # (AUTO) 0.1 X10'3 (0-0.9); MONOCYTES % (AUTO) 0.7 % (2-12); NEUTROPHILS # (AUTO) 16.9 X10'3 (1.8-7.7); NEUTROPHILS % (AUTO) 87.9 % (42-75); RED BLOOD COUNT 3.05 X10'6 (4.70-6.10); WHITE BLOOD COUNT 19.3 X10'3 (4.5-11.0)
[2017-05-01 06:42] LABS: PLATELET COUNT 40 X10'3 (140-440)
[2017-05-01 06:59] LABS: ALANINE AMINOTRANSFERASE 36 U/L (12-78); ALBUMIN 1.5 G/DL (3.4-5.0); ALBUMIN/GLOBULIN RATIO 0.4 (1.1-1.5); ALKALINE PHOSPHATASE 70 IU/L (46-116); ANION GAP 9 (8-16); ASPARTATE AMINO TRANSFERASE 39 U/L (10-37); BILIRUBIN,TOTAL 0.5 MG/DL (0.1-1.0); BLOOD UREA NITROGEN 49 MG/DL (7-18); CALCIUM 6.9 MG/DL (8.5-10.1); CHLORIDE 113 MMOL/L (99-107); CREATININE 1.96 MG/DL (0.60-1.10); GLUCOSE 76 MG/DL (70-104); MAGNESIUM 1.7 MG/DL (1.5-2.4); PHOSPHORUS 2.9 MG/DL (2.3-4.5); POTASSIUM 3.4 MMOL/L (3.5-5.1); SODIUM 150 MMOL/L (135-145); TOTAL CARBON DIOXIDE 27.9 MMOL/L (24-32); TOTAL PROTEIN 4.9 G/DL (6.4-8.2); eGFR 34 ML/MIN
[2017-05-01] MEDS: K, MAG and/or Phos replacement - Verify level? MC SCH (08:00)
[2017-05-01] MEDS: LACTOSE-FREE FOOD (BOOST BREEZE) 237ML PO SCH (08:00)
[2017-05-01] MEDS: furosemide 40mg/4ml inj IV SCH ×3 (08:25→16:00)
[2017-05-01] MEDS: buPROPion SR 150mg tablet PO SCH (08:25)
[2017-05-01] MEDS: ferrous sulfate 325mg tablet PO SCH (08:25)
[2017-05-01] MEDS: oxyCODONE SR 40mg (sust release) tab PO SCH ×2 (08:25→20:20)
[2017-05-01] MEDS: aripiprazole 5mg tablet PO SCH (08:25)
[2017-05-01] MEDS: CefTRIAXone 2gm/NS 100ml IVPB 100 ML IV SCH (08:25)
[2017-05-01] MEDS: vitamin D (cholecalciferol) 1,000 unit tablet PO SCH (08:25)
[2017-05-01] MEDS: lactobacillus rhamnosus 10,000 MMU CELLS/CAPSULE PO SCH ×2 (08:25→20:20)
[2017-05-01] MEDS: ascorbic acid 500mg tablet PO SCH ×2 (08:26→20:20)
[2017-05-01] MEDS: potassium Cl 20 mEq SR tablet PO PRN ×3 (08:27→20:20)
[2017-05-01 09:00] VITALS: BP 109/65
[2017-05-01 09:32] LABS: C DIFF ANTIGEN NEGATIVE (NEGATIVE); C DIFF SPECIMEN=DIARRHEA? ACCEPTABLE; C DIFFICILE TOXINS A&B NEGATIVE (Neg)
[2017-05-01] MEDS: oxyCODONE/APAP 10/325mg tablet PO PRN ×2 (11:34→17:21)
[2017-05-01 18:00] VITALS: BP 83/59
[2017-05-01] MEDS: Protein Shake (high protein) 240ml (8oz) cup PO SCH (18:00)
[2017-05-01 19:00] VITALS: BP 91/42
[2017-05-01 22:00] VITALS: BP 79/41
[2017-05-01 22:28] VITALS: BP 94/43
[2017-05-01] MEDS: diphenhydrAMINE 50 mg/ml inj IV PRN (22:36)
[2017-05-02] VITALS (8 sets, daily range): BP systolic 80–110; BP diastolic 43–66
[2017-05-02] MEDS: amiodarone 200mg tablet PO SCH ×3 (04:21→20:31)
[2017-05-02 07:29] LABS: BASOPHILS % (AUTO) 0 % (0-1); EOSINOPHILS # (AUTO) 0.9 X10'3 (0-0.9); EOSINOPHILS % (AUTO) 5.7 % (0-6); HEMATOCRIT 26.2 % (42.0-52.0); HEMOGLOBIN 8.8 g/dl (14.0-17.9); LYMPHOCYTES # (AUTO) 1.3 X10'3 (1.1-4.8); LYMPHOCYTES % (AUTO) 7.9 % (21-51); MEAN CORPUSCULAR HGB CONC 33.7 % (33.0-36.5); MEAN CORPUSCULAR VOLUME 89.2 FL (78-98); MEAN PLATELET VOLUME 9.8 FL (7.4-10.4); MONOCYTES # (AUTO) 0.2 X10'3 (0-0.9); MONOCYTES % (AUTO) 1.1 % (2-12); NEUTROPHILS # (AUTO) 14.1 X10'3 (1.8-7.7); NEUTROPHILS % (AUTO) 85.3 % (42-75); PLATELET COUNT 55 X10'3 (140-440); RED BLOOD COUNT 2.93 X10'6 (4.70-6.10); RED CELL DISTRIBUTION WIDTH 15.2 % (11.5-14.5); WHITE BLOOD COUNT 16.5 X10'3 (4.5-11.0)
[2017-05-02 07:55] LABS: ALANINE AMINOTRANSFERASE 30 U/L (12-78); ALBUMIN 1.3 G/DL (3.4-5.0); ALBUMIN/GLOBULIN RATIO 0.4 (1.1-1.5); ALKALINE PHOSPHATASE 64 IU/L (46-116); ANION GAP 8 (8-16); ASPARTATE AMINO TRANSFERASE 27 U/L (10-37); BILIRUBIN,TOTAL 0.5 MG/DL (0.1-1.0); BLOOD UREA NITROGEN 42 MG/DL (7-18); BUN/CREATININE RATIO 24.1 (5.4-32.0); CALCIUM 6.9 MG/DL (8.5-10.1); CHLORIDE 113 MMOL/L (99-107); CREATININE 1.74 MG/DL (0.60-1.10); GLUCOSE 69 MG/DL (70-104); MAGNESIUM 1.7 MG/DL (1.5-2.4); PHOSPHORUS 3.1 MG/DL (2.3-4.5); POTASSIUM 3.8 MMOL/L (3.5-5.1); SODIUM 151 MMOL/L (135-145); TOTAL CARBON DIOXIDE 30.3 MMOL/L (24-32); TOTAL PROTEIN 4.9 G/DL (6.4-8.2); eGFR 39 ML/MIN
[2017-05-02] MEDS: furosemide 40mg/4ml inj IV SCH ×3 (08:00→16:00)
[2017-05-02] MEDS: K, MAG and/or Phos replacement - Verify level? MC SCH (08:00)
[2017-05-02] MEDS: vitamin D (cholecalciferol) 1,000 unit tablet PO SCH (08:41)
[2017-05-02] MEDS: aripiprazole 5mg tablet PO SCH (08:41)
[2017-05-02] MEDS: ferrous sulfate 325mg tablet PO SCH (08:41)
[2017-05-02] MEDS: buPROPion SR 150mg tablet PO SCH (08:41)
[2017-05-02] MEDS: CefTRIAXone 2gm/NS 100ml IVPB 100 ML IV SCH (08:41)
[2017-05-02] MEDS: ascorbic acid 500mg tablet PO SCH ×2 (08:41→20:29)
[2017-05-02] MEDS: oxyCODONE SR 40mg (sust release) tab PO SCH ×2 (08:41→20:29)
[2017-05-02] MEDS: lactobacillus rhamnosus 10,000 MMU CELLS/CAPSULE PO SCH ×2 (08:41→20:31)
[2017-05-02] MEDS: Protein Shake (high protein) 240ml (8oz) cup PO SCH ×3 (08:46→18:37)
[2017-05-02] MEDS: diphenhydrAMINE 50 mg/ml inj IV PRN (11:13)
[2017-05-02] MEDS: oxyCODONE/APAP 10/325mg tablet PO PRN ×2 (14:34→20:30)
[2017-05-03 05:00] VITALS: BP 100/41
[2017-05-03] MEDS: furosemide 40mg/4ml inj IV SCH ×2 (07:41)
[2017-05-03] MEDS: CefTRIAXone 2gm/NS 100ml IVPB 100 ML IV SCH (07:57)
[2017-05-03] MEDS: buPROPion SR 150mg tablet PO SCH (07:57)
[2017-05-03] MEDS: aripiprazole 5mg tablet PO SCH (07:57)
[2017-05-03] MEDS: oxyCODONE SR 40mg (sust release) tab PO SCH ×2 (07:57→19:44)
[2017-05-03] MEDS: amiodarone 200mg tablet PO SCH ×2 (07:57→19:44)
[2017-05-03] MEDS: ferrous sulfate 325mg tablet PO SCH (07:57)
[2017-05-03] MEDS: diphenhydrAMINE 50 mg/ml inj IV PRN ×2 (07:57→15:52)
[2017-05-03] MEDS: ascorbic acid 500mg tablet PO SCH ×2 (07:57→19:44)
[2017-05-03] MEDS: lactobacillus rhamnosus 10,000 MMU CELLS/CAPSULE PO SCH ×2 (07:57→19:44)
[2017-05-03] MEDS: vitamin D (cholecalciferol) 1,000 unit tablet PO SCH (07:57)
[2017-05-03] MEDS: K, MAG and/or Phos replacement - Verify level? MC SCH (08:00)
[2017-05-03] MEDS: Protein Shake (high protein) 240ml (8oz) cup PO SCH ×3 (08:07→19:46)
[2017-05-03] MEDS ORDERED: emollient combination-Eucerin 250 ML LOTION TP SCH (08:15)
[2017-05-03 08:19] LABS: BASOPHILS % (AUTO) 0.1 % (0-1); EOSINOPHILS % (AUTO) 6.2 % (0-6); HEMATOCRIT 27.3 % (42.0-52.0); HEMOGLOBIN 9.1 g/dl (14.0-17.9); LYMPHOCYTES # (AUTO) 1.4 X10'3 (1.1-4.8); MEAN CORPUSCULAR HGB CONC 33.5 % (33.0-36.5); MEAN CORPUSCULAR VOLUME 89.5 FL (78-98); MEAN PLATELET VOLUME 10.4 FL (7.4-10.4); MONOCYTES % (AUTO) 6.2 % (2-12); NEUTROPHILS # (AUTO) 12.2 X10'3 (1.8-7.7); NEUTROPHILS % (AUTO) 78.5 % (42-75); PLATELET COUNT 85 X10'3 (140-440); RED BLOOD COUNT 3.05 X10'6 (4.70-6.10); RED CELL DISTRIBUTION WIDTH 15.5 % (11.5-14.5); WHITE BLOOD COUNT 15.5 X10'3 (4.5-11.0)
[2017-05-03 08:38] LABS: ALANINE AMINOTRANSFERASE 28 U/L (12-78); ALBUMIN 1.4 G/DL (3.4-5.0); ALBUMIN/GLOBULIN RATIO 0.3 (1.1-1.5); ALKALINE PHOSPHATASE 73 IU/L (46-116); ANION GAP 9 (8-16); ASPARTATE AMINO TRANSFERASE 32 U/L (10-37); BILIRUBIN,TOTAL 0.4 MG/DL (0.1-1.0); BLOOD UREA NITROGEN 37 MG/DL (7-18); BUN/CREATININE RATIO 23.9 (5.4-32.0); CALCIUM 6.8 MG/DL (8.5-10.1); CHLORIDE 113 MMOL/L (99-107); CREATININE 1.55 MG/DL (0.60-1.10); GLUCOSE 76 MG/DL (70-104); MAGNESIUM 1.9 MG/DL (1.5-2.4); PHOSPHORUS 3.4 MG/DL (2.3-4.5); SODIUM 151 MMOL/L (135-145); TOTAL CARBON DIOXIDE 29.3 MMOL/L (24-32); TOTAL PROTEIN 5.6 G/DL (6.4-8.2); eGFR 44 ML/MIN
[2017-05-03 10:00] VITALS: BP 128/56
[2017-05-03 15:51] VITALS: BP 111/59
[2017-05-03] MEDS: furosemide 20 MG/2 ML vial IV SCH (15:52)
[2017-05-03 18:39] VITALS: BP 104/58
[2017-05-03 22:09] VITALS: BP 96/50
[2017-05-04 00:40] VITALS: BP 88/62
[2017-05-04 06:00] VITALS: BP 108/54
[2017-05-04 07:02] LABS: BASOPHILS % (AUTO) 0.1 % (0-1); EOSINOPHILS # (AUTO) 0.9 X10'3 (0-0.9); HEMATOCRIT 25.6 % (42.0-52.0); HEMOGLOBIN 8.5 g/dl (14.0-17.9); LYMPHOCYTES # (AUTO) 1.4 X10'3 (1.1-4.8); LYMPHOCYTES % (AUTO) 9.3 % (21-51); MEAN CORPUSCULAR HEMOGLOBIN 30.1 PG (27.0-31.0); MEAN CORPUSCULAR HGB CONC 33.3 % (33.0-36.5); MEAN CORPUSCULAR VOLUME 90.4 FL (78-98); MEAN PLATELET VOLUME 9.5 FL (7.4-10.4); MONOCYTES # (AUTO) 1.3 X10'3 (0-0.9); NEUTROPHILS # (AUTO) 11.2 X10'3 (1.8-7.7); NEUTROPHILS % (AUTO) 75.6 % (42-75); PLATELET COUNT 102 X10'3 (140-440); RED BLOOD COUNT 2.83 X10'6 (4.70-6.10); RED CELL DISTRIBUTION WIDTH 15.4 % (11.5-14.5); WHITE BLOOD COUNT 14.8 X10'3 (4.5-11.0)
[2017-05-04] MEDS: oxyCODONE SR 40mg (sust release) tab PO SCH (07:10)
[2017-05-04] MEDS: lactobacillus rhamnosus 10,000 MMU CELLS/CAPSULE PO SCH (07:10)
[2017-05-04] MEDS: buPROPion SR 150mg tablet PO SCH (07:10)
[2017-05-04] MEDS: ascorbic acid 500mg tablet PO SCH (07:11)
[2017-05-04] MEDS: aripiprazole 5mg tablet PO SCH (07:11)
[2017-05-04] MEDS: amiodarone 200mg tablet PO SCH (07:12)
[2017-05-04] MEDS: vitamin D (cholecalciferol) 1,000 unit tablet PO SCH (07:13)
[2017-05-04] MEDS: ferrous sulfate 325mg tablet PO SCH (07:14)
[2017-05-04] MEDS: furosemide 20 MG/2 ML vial IV SCH ×2 (07:15)
[2017-05-04 07:17] LABS: ALANINE AMINOTRANSFERASE 26 U/L (12-78); ALBUMIN 1.3 G/DL (3.4-5.0); ALBUMIN/GLOBULIN RATIO 0.3 (1.1-1.5); ALKALINE PHOSPHATASE 67 IU/L (46-116); ANION GAP 6 (8-16); ASPARTATE AMINO TRANSFERASE 27 U/L (10-37); BILIRUBIN,TOTAL 0.5 MG/DL (0.1-1.0); BLOOD UREA NITROGEN 32 MG/DL (7-18); BUN/CREATININE RATIO 20.5 (5.4-32.0); CALCIUM 6.7 MG/DL (8.5-10.1); CHLORIDE 113 MMOL/L (99-107); CREATININE 1.56 MG/DL (0.60-1.10); GLUCOSE 86 MG/DL (70-104); MAGNESIUM 1.9 MG/DL (1.5-2.4); PHOSPHORUS 3.4 MG/DL (2.3-4.5); POTASSIUM 3.8 MMOL/L (3.5-5.1); SODIUM 150 MMOL/L (135-145); TOTAL CARBON DIOXIDE 31.5 MMOL/L (24-32); TOTAL PROTEIN 5.4 G/DL (6.4-8.2); eGFR 44 ML/MIN
[2017-05-04] MEDS: CefTRIAXone 2gm/NS 100ml IVPB 100 ML IV SCH (07:18)
[2017-05-04] MEDS: K, MAG and/or Phos replacement - Verify level? MC SCH (07:23)
[2017-05-04] MEDS: Protein Shake (high protein) 240ml (8oz) cup PO SCH ×2 (08:12→13:04)
[2017-05-04] MEDS ORDERED: emollient combination-Eucerin 250 ML LOTION TP PRN (08:15)
[2017-05-04 10:00] VITALS: BP 91/46
== END 2017-05-04 15:20 | DRG 871 ==
LOC: ER 05:32 → ED HOLD 14:05 → EDBEDREQ 15:17 → CICU 2S 04-23 15:43 → ORTHO 4S 04-28 17:55
PROVIDERS: ATTEND Family Medicine
PROC: 02HV33Z Insertion of Infusion Device into Superior Vena Cava, Percutaneous Approach (ICD-10-PCS; 2017-04-24)
PROC: B548ZZA Ultrasonography of Superior Vena Cava, Guidance (ICD-10-PCS; 2017-04-24)
PROC: 30233R1 Transfusion of Nonautologous Platelets into Peripheral Vein, Percutaneous Approach (ICD-10-PCS; principal; 2017-04-27)
DX: A41.51 Sepsis due to Escherichia coli [E. coli] (principal); J18.9 Pneumonia, unspecified organism; R65.21 Severe sepsis with septic shock; G93.41 Metabolic encephalopathy; L89.159 Pressure ulcer of sacral region, unspecified stage; I50.43 Acute on chronic combined systolic (congestive) and diastolic (congestive) heart failure; N17.9 Acute kidney failure, unspecified; E87.0 Hyperosmolality and hypernatremia; D69.59 Other secondary thrombocytopenia; E88.09 Other disorders of plasma-protein metabolism, not elsewhere classified; I82.509 Chronic embolism and thrombosis of unspecified deep veins of unspecified lower extremity; N39.0 Urinary tract infection, site not specified; L89.90 Pressure ulcer of unspecified site, unspecified stage; F32.9 Major depressive disorder, single episode, unspecified; M19.90 Unspecified osteoarthritis, unspecified site; E86.0 Dehydration; I34.0 Nonrheumatic mitral (valve) insufficiency; B96.20 Unspecified Escherichia coli [E. coli] as the cause of diseases classified elsewhere; G89.29 Other chronic pain; M81.0 Age-related osteoporosis without current pathological fracture; Z51.5 Encounter for palliative care; Z66 Do not resuscitate; Z74.01 Bed confinement status; Z90.49 Acquired absence of other specified parts of digestive tract; Z98.84 Bariatric surgery status; Z88.6 Allergy status to analgesic agent; Z88.1 Allergy status to other antibiotic agents; Z79.01 Long term (current) use of anticoagulants; Z86.711 Personal history of pulmonary embolism
CPT/HCPCS: 36415; 36556; 36569; 71045; 76937; 80053; 81001; 82330; 82810; 82948; 83605; 83735; 83935; 84100; 84132; 84145; 85025; 85610; 85730; 86885; 86900; 86901; 87040; 87070; 87077; 87088; 87186; 87324; 87449; 87502; 87503; 92616; 93005; 93306; 93970; 96365; 96367; 97110; 97161; 97530; 99291; A4315; A4353; A6212; A6213; A6257; A6402; A6449; C1751; C9113; J0282; J0696; J1200; J1644; J1940; J1956; J2270; J2405; J2543; J2930; J3370; J3480; J3490; J7030; J7060; P9035; P9047

== ENCOUNTER 2017-06-19 09:23 | Emergency (ER) | payer MEDICARE, BC ==
[~2017-06-19] VITALS: Ht 154.9 cm; Wt 100.0 kg
[~2017-06-19 09:23] MED LIST changes: -ALEN70TA48 PO; -ARIP2TAB5 PO; +ARIP5TAB4 PO; +BUPR150T8 PO; +CHOL200016 PO; -COU5T PO; +DOCU100C23 PO; -FENT-93 TD; +FERR325T28 PO; +FURO-150 PO; -FURO40TA4 PO; -MIRT30TA3 PO; +MIRT30TA8 PO; -NORCO10T PO; +ONDA4TAB6 PO; +OXYC10TA57 PO; +PER10325T PO; +POLY17PO10 PO; +POTA10TA19 PO; -RES15C PO; +SENN-161 PO; +VITC500T PO; -WEL100T PO; -ZOF4T PO; -[UNRECOGNIZED DRUG - CODE] TP
[2017-06-19 09:52] LABS: BASOPHILS % (AUTO) 0.3 % (0-1); EOSINOPHILS # (AUTO) 0.3 X10'3 (0-0.9); EOSINOPHILS % (AUTO) 3.2 % (0-6); HEMATOCRIT 35.5 % (42.0-52.0); HEMOGLOBIN 11.6 g/dl (14.0-17.9); LYMPHOCYTES # (AUTO) 1.6 X10'3 (1.1-4.8); LYMPHOCYTES % (AUTO) 18.7 % (21-51); MEAN CORPUSCULAR HEMOGLOBIN 30.6 PG (27.0-31.0); MEAN CORPUSCULAR HGB CONC 32.6 % (33.0-36.5); MEAN CORPUSCULAR VOLUME 93.7 FL (78-98); MEAN PLATELET VOLUME 7.9 FL (7.4-10.4); MONOCYTES # (AUTO) 0.7 X10'3 (0-0.9); MONOCYTES % (AUTO) 8.6 % (2-12); NEUTROPHILS % (AUTO) 69.2 % (42-75); PLATELET COUNT 289 X10'3 (140-440); RED BLOOD COUNT 3.79 X10'6 (4.70-6.10); RED CELL DISTRIBUTION WIDTH 16.9 % (11.5-14.5); WHITE BLOOD COUNT 8.6 X10'3 (4.5-11.0)
[2017-06-19 10:05] LABS: ALANINE AMINOTRANSFERASE 16 U/L (12-78); ALBUMIN 1.9 G/DL (3.4-5.0); ALBUMIN/GLOBULIN RATIO 0.4 (1.1-1.5); ALKALINE PHOSPHATASE 96 IU/L (46-116); ANION GAP 8 (8-16); ASPARTATE AMINO TRANSFERASE 21 U/L (10-37); BILIRUBIN,TOTAL 0.4 MG/DL (0.1-1.0); BLOOD UREA NITROGEN 22 MG/DL (7-18); BUN/CREATININE RATIO 16.1 (5.4-32.0); CHLORIDE 106 MMOL/L (99-107); CREATININE 1.37 MG/DL (0.60-1.10); GLUCOSE 83 MG/DL (70-104); MAGNESIUM 1.8 MG/DL (1.5-2.4); POTASSIUM 4.4 MMOL/L (3.5-5.1); SODIUM 142 MMOL/L (135-145); TOTAL CARBON DIOXIDE 28.4 MMOL/L (24-32); eGFR 51 ML/MIN
[2017-06-19 13:53] VITALS: BP 119/77
== END 2017-06-19 13:55 | disposition home or self-care (01) ==
LOC: ER 09:24
DX: E83.51 Hypocalcemia (principal); D64.9 Anemia, unspecified; M81.0 Age-related osteoporosis without current pathological fracture; Z86.718 Personal history of other venous thrombosis and embolism; Z86.711 Personal history of pulmonary embolism; Z98.84 Bariatric surgery status; Z88.8 Allergy status to other drugs, medicaments and biological substances; Z79.899 Other long term (current) drug therapy; Z98.890 Other specified postprocedural states
CPT/HCPCS: 36415; 80053; 83735; 85025; 93005; 99285

== ENCOUNTER 2017-09-29 14:02 | Day surgery (SDC) | payer MEDICARE, BC ==
[~2017-09-29] VITALS: Ht 180.3 cm; Wt 86.4 kg
[2017-09-29 14:13] VITALS: BP 132/57
[2017-09-29] MEDS ORDERED: AMIO200T40 PO (14:59)
[2017-09-29] MEDS ORDERED: BUPR100T5 PO (15:07)
[2017-09-29] MEDS ORDERED: FURO40TA4 PO (15:07)
[2017-09-29] MEDS ORDERED: MIRT15TA8 PO (15:09)
[2017-09-29] MEDS ORDERED: OXYC20TA55 PO (15:10)
[2017-09-29] MEDS ORDERED: POTA-82 PO (15:12)
[2017-09-29] MEDS ORDERED: RIVA20TA PO (15:15)
[2017-09-29] MEDS ORDERED: CALC500T11 PO (15:16)
[2017-09-29] MEDS ORDERED: LOPE2TAB25 PO (15:18)
[2017-09-29] MEDS ORDERED: MAPAP PO (15:20)
[2017-09-29] MEDS ORDERED: MILK OF MAGNESIA PO (15:22)
[2017-09-29] MEDS ORDERED: ONDA4TAB6 PO (15:23)
[2017-09-29] MEDS ORDERED: OXYC10TA57 PO (15:28)
[2017-09-29 15:29] VITALS: BP 110/57
[2017-09-29] MEDS ORDERED: SENN-161 PO (15:29)
[2017-09-29] MEDS ORDERED: PER10325T PO (15:29)
[2017-09-29 15:39] VITALS: BP 106/73
[2017-09-29 15:49] VITALS: BP 118/70
[2017-09-29 15:59] VITALS: BP 125/75
== END 2017-09-29 16:29 | disposition home or self-care (01) ==
LOC: GI LAB 14:02
PROVIDERS: ATTEND Internal Medicine Gastroenterology
DX: R11.0 Nausea (principal); I48.91 Unspecified atrial fibrillation; K21.9 Gastro-esophageal reflux disease without esophagitis; M19.90 Unspecified osteoarthritis, unspecified site; M81.0 Age-related osteoporosis without current pathological fracture; F32.9 Major depressive disorder, single episode, unspecified; I50.43 Acute on chronic combined systolic (congestive) and diastolic (congestive) heart failure; G89.29 Other chronic pain; I34.0 Nonrheumatic mitral (valve) insufficiency; Z98.84 Bariatric surgery status; Z87.891 Personal history of nicotine dependence; Z87.01 Personal history of pneumonia (recurrent); Z90.49 Acquired absence of other specified parts of digestive tract; Z87.442 Personal history of urinary calculi; Z87.440 Personal history of urinary (tract) infections; Z79.891 Long term (current) use of opiate analgesic; Z80.1 Family history of malignant neoplasm of trachea, bronchus and lung; Z79.01 Long term (current) use of anticoagulants; Z86.711 Personal history of pulmonary embolism; Z88.1 Allergy status to other antibiotic agents; Z96.653 Presence of artificial knee joint, bilateral; Z96.611 Presence of right artificial shoulder joint; Z96.612 Presence of left artificial shoulder joint; Z72.89 Other problems related to lifestyle; Z88.5 Allergy status to narcotic agent; Z86.718 Personal history of other venous thrombosis and embolism; Z88.8 Allergy status to other drugs, medicaments and biological substances; Z79.899 Other long term (current) drug therapy; Z98.890 Other specified postprocedural states
CPT/HCPCS: 43235; J7030; A4620; G0500

== ENCOUNTER 2017-11-08 20:08 | Emergency (ER) | payer MEDICARE, BC ==
[~2017-11-08] VITALS: Ht 175.3 cm; Wt 90.0 kg
[~2017-11-08 20:08] MED LIST changes: +AMIO200T40 PO; -ARIP5TAB4 PO; +BUPR100T5 PO; -BUPR150T8 PO; +CALC500T11 PO; -CHOL200016 PO; +CHOL200052 PO; +DOCU-274 PO; -DOCU100C23 PO; -FURO-150 PO; +FURO40TA4 PO; +LOPE2TAB25 PO; +MAPAP PO; +MILK OF MAGNESIA PO; +MIRT15TA8 PO; -MIRT30TA8 PO; +OXYC20TA55 PO; +POTA-82 PO; -POTA10TA19 PO; +RIVA20TA PO
[2017-11-08 22:54] VITALS: BP 102/62
== END 2017-11-08 22:58 | disposition home or self-care (01) ==
LOC: ER 20:08
DX: M25.511 Pain in right shoulder (principal); M19.90 Unspecified osteoarthritis, unspecified site; M81.0 Age-related osteoporosis without current pathological fracture; Z86.718 Personal history of other venous thrombosis and embolism; Z90.89 Acquired absence of other organs; Z88.6 Allergy status to analgesic agent; Z88.1 Allergy status to other antibiotic agents; Z88.8 Allergy status to other drugs, medicaments and biological substances; Z96.611 Presence of right artificial shoulder joint
CPT/HCPCS: 29105; 73030; 99284; A4565

== ENCOUNTER → 2018-07-10 | Emergency (ER) | payer MEDICARE, BC ==
[~2018-07-10] VITALS: Ht 180.3 cm; Wt 90.9 kg
[~2018-07-10] MED LIST changes: +DOXY100C2 PO; -SENN-161 PO; +SENN-162 PO
[2018-07-10 10:34] VITALS: BP 151/96
== END | disposition home or self-care (01) ==
LOC: ER 10:27
DX: Z43.6 Encounter for attention to other artificial openings of urinary tract (principal); Z86.718 Personal history of other venous thrombosis and embolism; M19.90 Unspecified osteoarthritis, unspecified site; M81.0 Age-related osteoporosis without current pathological fracture; Z90.49 Acquired absence of other specified parts of digestive tract; Z98.890 Other specified postprocedural states; Z88.5 Allergy status to narcotic agent; Z88.8 Allergy status to other drugs, medicaments and biological substances; Z79.899 Other long term (current) drug therapy
CPT/HCPCS: 99283